=== PATIENT | female | born 1950 | race Hispanic/Latino ===

== ENCOUNTER 2017-01-21 07:35 | Observation (INO) | payer BC, MEDICARE, OTHER ==
[2017-01-21] MEDS: NACL 0.9% 500 ML 500 ML IV SCH ×2 (09:50→13:49)
[2017-01-21 10:15] LABS: Basophils % (Auto) 0.9 % (0.0-1.8); Eosinophils % (Auto) 1.2 % (0.0-4.3); Hemoglobin 12.1 gm/dl (10.1-14.3); Mean Corpuscular HGB Conc 33 % (30-34); Mean Corpuscular Hemoglobin 28 pg (28-32); Mean Corpuscular Volume 84 fl (79-97); Platelet Count 276 K/mm3 (140-440); Red Blood Count 4.38 M/mm3 (3.65-5.03); Red Cell Distribution Width 15.1 % (13.2-15.2); White Blood Count 7.2 K/mm3 (4.5-11.0)
[2017-01-21 10:49] LABS: INR 1.02 (0.87-1.13)
[2017-01-21] MEDS ORDERED: ECOTRIN PO ONE (11:00)
[2017-01-21 11:17] LABS: Calcium 9.3 mg/dL (8.4-10.2); Chloride 99.6 mmol/L (98-107); Potassium 4.6 mmol/L (3.6-5.0)
[2017-01-21] MEDS ORDERED: HEPARIN 10,000 UNITS/10 ML ONE (11:21)
[2017-01-21] MEDS ORDERED: HEPARIN/NS 5000 UNIT/500ML(CATH LAB) 1,000 ML IR ONE (11:21)
[2017-01-21] MEDS ORDERED: NITROGLYCERIN SYRINGE 3 ML ONE (11:22)
[2017-01-21] MEDS ORDERED: SUBLIMAZE ONE (11:22)
[2017-01-21] MEDS ORDERED: VERSED ONE (11:22)
[2017-01-21] MEDS ORDERED: XYLOCAINE 2% INFILTRATI ONE (11:22)
[2017-01-21] MEDS ORDERED: CALAN ONE (11:26)
[2017-01-21] MEDS ORDERED: NACL 0.9% 100 ML ONE (11:46)
[2017-01-21] MEDS ORDERED: WATER FOR INJ (PF) 10 ML ONE (11:46)
[2017-01-21] MEDS: ANGIOMAX IV ONE ×2 (11:53→11:57)
[2017-01-21] MEDS ORDERED: EFFIENT PO ONE (12:16)
[2017-01-21] MEDS ORDERED: ALUM-MAG HYDROX-SIMETH 200-200-20MG/5ML ONE (12:16)
--- NOTE | 2017-01-21 13:08 | Short Stay Summary ---
Short Stay Documentation Date of service: 01/21/17 - History H&P: obtained from office - Allergies and Medications Current Medications: Allergies No Known Allergies Allergy (Unverified 01/21/17 07:36) Home Medications Medication Instructions Recorded Confirmed Last Taken Type Aspirin [Adult Low Dose Aspirin EC] 81 mg PO DAILY 01/21/17 01/21/17 01/20/17 23 :00 History Azilsartan Medoxomil [Edarbi] 40 mg PO DAILY 01/21/17 01/21/17 01/20/17 History Carvedilol [Carvedilol] 12.5 mg PO DAILY 01/21/17 01/21/17 01/20/17 History FLUoxetine HCL [Fluoxetine HCl] 20 mg PO DAILY 01/21/17 01/21/17 01/20/17 History Furosemide [Lasix TAB] 40 mg PO QDAY 01/21/17 01/21/17 01/20/17 History HYDROcodone/ACETAMINOPHEN 1 each PO DAILY PRN 01/21/17 01/21/17 01/20/17 History [Hydrocodone-Acetaminophnen(Nf) 10/500 mg Tab] Montelukast [Singulair] 10 mg PO DAILY 01/21/17 01/21/17 01/20/17 History Multivitamin Tab [Multiple Vitamin 1 each PO QDAY 01/21/17 01/21/17 01/20/17 History TAB (Theragran)] [place]-3S/Dha/Epa/Fish Oil [Fish 1 each PO DAILY 01/21/17 01/21/17 01/20/17 History Oil 1,200 mg Softgel] Pravastatin Sodium [Pravastatin 20 mg PO DAILY 01/21/17 01/21/17 01/20/17 History Sodium] traZODone [Desyrel] 50 mg PO QHS 01/21/17 01/21/17 01/20/17 History Active Medications Aspirin (Baby Aspirin) 81 mg PO QDAY EUNICE Carvedilol (Coreg) 12.5 mg PO DAILY EUNICE Fluoxetine HCl (Prozac) 20 mg PO DAILY EUNICE Furosemide (Lasix) 40 mg PO QDAY EUNICE Sodium Chloride (Nacl 0.9% 500 Ml) 500 mls @ 50 mls/hr IV DIRECT EUNICE Stop: 01/21/17 20:59 Last Admin: 01/21/17 09:50 Dose: 50 mls/hr Montelukast Sodium (Singulair) 10 mg PO DAILY EUNICE Multivitamins (Theragran Tab) 1 each PO QDAY EUNICE Prasugrel (Effient) 10 mg PO QDAY EUNICE - Brief post op/procedure progress note Date of procedure: 01/21/17 Pre-op diagnosis: chest pain Post-op diagnosis: other (CAD) Procedure: LHC with PCI - see cath report Anesthesia: local Estimated blood loss: none Pathology: none Condition: stable - Disposition Condition at discharge: Stable Disposition: [id number] TO HOME OR SELFCARE - Discharge Diagnoses (1) CAD (coronary artery disease) Status: Chronic Qualifiers: Coronary Disease-Associated Artery/Lesion type: C [place] vs. transplanted heart: N Associated angina: A (2) Stented coronary artery Status: Chronic (3) HTN (hypertension) Status: Chronic Qualifiers: Hypertension type: H (4) Hyperlipemia Status: Chronic Qualifiers: Hyperlipidemia type: H Short Stay Discharge Plan Activity: advance as tolerated Diet: low fat, low cholesterol, low salt Wound: open to air, keep clean and dry Follow up with: JAVI CASTELLANOS MD [Staff Physician] - 7 Days (02/10/2017 @ 10:45AM in [facility] office) Prescriptions: AtorvaSTATin [Lipitor] 80 mg PO QHS #30 tablet Prasugrel [Effient] 10 mg PO QDAY #30 tablet
[2017-01-21] MEDS ORDERED: NACL 0.9% 500 ML 500 ML ONE (13:47)
--- NOTE | 2017-01-21 13:53 | Cardiac Catherization Report ---
REFERRING PHYSICIAN: Jameson Francois MD INDICATION FOR PROCEDURE: The patient is a pleasant 66-year-old female having unstable angina, abnormal stress test with anteroapical ischemia on multiple antianginals referred for left heart catheterization. Risks, benefits, and potential alternatives explained at length prior to obtaining informed consent. PROCEDURE IN DETAIL: The patient was brought to hospital laboratory technician in a postabsorptive state, prepped and draped in sterile fashion. Kyle's test in right hand was normal. A 2 mL of 2% lidocaine used to anesthetize the right wrist. A standard 6-[place] hydrophilic sheath used to cannulate the right radial artery via modified Seldinger technique. All exchanges performed to exchange a J-tip guidewire. JL3.5 catheter used to engage left main. No dampening or ventricularization. Cineangiography performed in all projections. JR4 catheter used to cross the aortic valve under fluoroscopic guidance. Left ventriculography performed in 30 SAVAGE and 30 PADMINI projections via hand injections, catheter flushed. Manual pullback performed with continuous pressure monitoring. Catheter used to engage the right coronary. No dampening or ventricularization. Cineangiography performed in multiple projections. Next, catheter removed from the body over a wire. DATA: Aortic pressure is 110/60 with LV pressure is 110, LVEDP of 4 mmHg. Left ventriculography revealed normal systolic performance with estimated ejection fraction of 50-55%. No evidence of aortic stenosis. CORONARY ANATOMY: This is a right dominant system. Right coronary is a moderate sized vessel, courses AV groove, distally bifurcates in the posterior descending and posterolateral branches. No discrete stenosis identified. Left main is without significant disease, trifurcates into the left circumflex, ramus intermedius and LAD. Left circumflex is on a small estimated of two AV groove circumflex, no significant disease. Ramus intermedius is a moderate sized vessel, courses the middle aspect of the lateral wall. No significant disease. LAD is a moderate sized vessel, courses anterior interventricular groove, wraps around the apex. There is a 90-95% stenosis in the distal portion of the mid LAD. Given her symptom complex, stress test findings, and antianginal therapies with persistent symptoms, we will proceed with PCI. Angiomax was given. Abnormal ACT is confirmed. The patient loaded with aspirin and Effient. Using EBU 3.5 guide to engage left main without difficulty. No dampening. Used a [employer] wire to cross the lesion without difficulty. Direct stented with a 2.75 x 18 Resolute drug-eluting stent. Excellent angiographic result. Intravascular ultrasound was performed and multiple passes were made revealed a well apposed and well expanded stent. Final angiogram reveals no evidence of complication. IVUS of the entire LAD and left main is unremarkable. The patient is clinically stable and chest pain free. CONCLUSIONS: 1. Severe single vessel coronary artery disease with 90-95% mid LAD stenosis given symptom complex consistent with unstable angina, multi antianginals, and anteroapical ischemia on stress test. Proceeded with PCI. Successful IVUS guided PCI with placement of drug-eluting stent (Resolute 2.75 x 18) with excellent final angiographic and ultrasonographic results. 2. Normal left ventricular systolic performance, estimated ejection fraction of 50-55%. 3. No evidence of aortic stenosis. 4. Normal LVEDP. Creatinine is 1.5 at onset, general IV fluids given. Effient, aspirin, statin therapy, aggressive primary and secondary risk factor modification. Standard radial care. DISCHARGE: We will check a creatinine in a.m. discharge in a.m., so long as she remains stable. Results of procedure explained in length to the patient and family. All questions and concerns were addressed. Follow up with Dr. Francois in the office. JOB# [id number] SBM/NTS
[2017-01-21] MEDS: NORCO 5/325 PO PRN (20:11)
[2017-01-21] MEDS ORDERED: ZOCOR PO SCH (22:00)
[2017-01-22 07:07] LABS: Basophils % (Auto) 0.6 % (0.0-1.8); Creatine Kinase MB 2.4 ng/mL (0.0-4.0); Eosinophils % (Auto) 1.8 % (0.0-4.3); Hematocrit 34.6 % (30.3-42.9); Hemoglobin 11.3 gm/dl (10.1-14.3); Mean Corpuscular HGB Conc 33 % (30-34); Mean Corpuscular Hemoglobin 28 pg (28-32); Mean Corpuscular Volume 84 fl (79-97); Platelet Count 229 K/mm3 (140-440); Red Blood Count 4.13 M/mm3 (3.65-5.03); Red Cell Distribution Width 15.4 % (13.2-15.2); White Blood Count 5.5 K/mm3 (4.5-11.0)
[2017-01-22 07:09] LABS: Anion Gap 15 mmol/L; Blood Urea Nitrogen 30 mg/dL (7-17); Calcium 9.3 mg/dL (8.4-10.2); Carbon Dioxide 28 mmol/L (22-30); Chloride 103.1 mmol/L (98-107); Creatine Kinase 51 units/L (30-135); Glucose 99 mg/dL (65-100); Potassium 4.9 mmol/L (3.6-5.0); Sodium 141 mmol/L (137-145)
[2017-01-22] MEDS: NORCO 5/325 PO PRN (07:35)
[2017-01-22 09:38] VITALS: BP 111/57
[2017-01-22] MEDS ORDERED: LASIX PO SCH (10:00)
[2017-01-22] MEDS ORDERED: BABY ASPIRIN PO SCH (10:00)
[2017-01-22] MEDS ORDERED: COREG PO SCH (10:00)
[2017-01-22] MEDS ORDERED: THERAGRAN Tab PO SCH (10:00)
[2017-01-22] MEDS ORDERED: SINGULAIR PO SCH (10:00)
[2017-01-22] MEDS ORDERED: PROzac PO SCH (10:00)
--- NOTE | 2017-01-22 10:21 | Event Note ---
Date: 01/22/17 no c/o. No cp or sob. Ambulating. Labs reviewed. ECGs reviewed. RRA site looks good. Stressed DAPT. f/u with Dr. RODRÍGUEZ.
--- NOTE | 2017-01-22 10:58 | XRay Report ---
AP CHEST :01/22/17 07:21 CLINICAL: Status post PCI. COMPARISON:06/01/08 FINDINGS: The heart is large. Central vascular congestion and indistinctness of the pulmonary vessels. Basal streaky lung opacities. No tubes or lines. No airspace disease or pleural effusion. The bones and soft tissues are normal. IMPRESSION: Mild CHF and bibasal atelectasis.
[2017-01-22] MEDS ORDERED: EFFIENT PO SCH (12:54)
== END 2017-01-22 10:28 | disposition home or self-care (01) ==
LOC: OPU 07:35 → 4A 12:55
PROVIDERS: ADMIT Internal Medicine; ATTEND Internal Medicine
DX: I25.110 Atherosclerotic heart disease of native coronary artery with unstable angina pectoris (principal); I50.33 Acute on chronic diastolic (congestive) heart failure; R94.31 Abnormal electrocardiogram [ECG] [EKG]; R94.39 Abnormal result of other cardiovascular function study; R06.09 Other forms of dyspnea; E78.4 Other hyperlipidemia; I10 Essential (primary) hypertension; I51.7 Cardiomegaly; R06.01 Orthopnea; E66.9 Obesity, unspecified
CPT/HCPCS: 36415; 71010; 80048; 82550; 82553; 84484; 85025; 85347; 85610; 85730; 92978; 93005; 93010; 93458; A9270; C1753; C1769; C1874; C1887; C1894; C9600; G0378; J0583; J1644; J2250; J3010; J7040; 92928; Q9967